=== PATIENT | female | born 1990 | race Two or more races ===

== ENCOUNTER 2024-08-12 03:26 | Inpatient (IN) | payer OTHER ==
[2024-08-12] VITALS (7 sets, daily range): BP systolic 92–101; BP diastolic 54–71
[~2024-08-12] VITALS: Ht 152.4 cm; Wt 72.6 kg
[2024-08-12] MEDS ORDERED: IRON325 MG (03:43)
[2024-08-12] MEDS ORDERED: PRENATAL TABLE1 EAC1 (03:43)
[2024-08-12] MEDS ORDERED: MAGNESIUM200 MG (03:44)
[2024-08-12] MEDS ORDERED: RINGERS SOLUTION,LACTATED 150 ML IV SCH (03:45)
[2024-08-12] MEDS ORDERED: PANADOL EXTRA500 MG PO (03:45)
[2024-08-12] MEDS ORDERED: PROMETHAZINE HCL 25 MG/ML AMPUL IV PRN (03:45)
[2024-08-12 04:44] LABS: HEMATOCRIT 37.3 % (36.0-45.00); HEMOGLOBIN 12.9 g/dL (12.0-15.00); MEAN CELL VOLUME 86.7 fL (80.00-100.00); MEAN CORPUSCULAR HEMOGLOBIN 29.9 pg (27.00-32.0); MEAN CORPUSCULAR HGB CONC 34.5 g/dl (32.0-36.0); PLATELET COUNT 196 K/uL (150-450); RED CELL DISTRIBUTION WIDTH 13.8 % (11.5-14.5)
[2024-08-12 05:01] LABS: ALBUMIN 2.8 gm/dL (3.4-5.0); BILIRUBIN TOTAL 0.87 mg/dL (0.3-1.2); CALCIUM 8.2 mg/dL (8.5-10.1); CREATININE SERUM 0.42 mg/dL (0.55-1.02); GFR 173.76; GLOBULINA 3.5 G/DL (2.4-3.5); POTASSIUM 4.18 mEq/L (3.5-5.1); TOTAL PROTEIN 6.3 gm/dL (6.4-8.2)
[2024-08-12] MEDS ORDERED: ONDANSETRON HCL 2 MG/ML VIAL IV PRN (13:15)
[2024-08-12] MEDS ORDERED: ACETAMINOPHEN 500 MG GEL..CAP PO PRN (21:30)
[2024-08-13 01:20] VITALS: BP 91/60
[2024-08-13 08:06] VITALS: BP 100/69
== END 2024-08-13 13:46 | disposition home or self-care (01) | DRG 831 ==
LOC: OBS/DEL 03:26 → LDR 08:20 → OB/GYN 21:26
PROVIDERS: Obstetrics & Gynecology; ADMIT Obstetrics & Gynecology; ATTEND Obstetrics & Gynecology
PROC: 4A1HXCZ Monitoring of Products of Conception, Cardiac Rate, External Approach (ICD-10-PCS; principal; 2024-08-12)
PROC: BY4FZZZ Ultrasonography of Third Trimester, Single Fetus (ICD-10-PCS; 2024-08-12)
PROC: BU4CZZZ Ultrasonography of Uterus and Ovaries (ICD-10-PCS; 2024-08-12)
DX: O21.1 Hyperemesis gravidarum with metabolic disturbance (principal); O60.03 Preterm labor without delivery, third trimester; O26.843 Uterine size-date discrepancy, third trimester; O36.8130 Decreased fetal movements, third trimester, not applicable or unspecified; O34.211 Maternal care for low transverse scar from previous cesarean delivery; Z3A.31 31 weeks gestation of pregnancy; O99.613 Diseases of the digestive system complicating pregnancy, third trimester